=== PATIENT | female | born 1950 | race Caucasian/White ===

== ENCOUNTER 2016-08-15 21:19 | Inpatient (IN) | payer OTHER ==
[~2016-08-15] VITALS: Ht 162.6 cm; Wt 95.2 kg
--- NOTE | ~2016-08-15 | EKG ---
[place] [address] 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 : 1950 Requested By: Patsy Kenny Order Number: [id number] MD: Ralph Vasquez Measurements Intervals Bailey Rate: 95 P: 24 AL: 141 QRS: -11 QRSD: 107 T: 9 QT: 365 QTc: 459 Interpretive Statements Sinus rhythm Left ventricular hypertrophy Inferior infarct, old Poor R-wave progression No previous ECG available for comparison Electronically Signed On 08-16-2016 7:45:20 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
--- NOTE | ~2016-08-15 | HC ---
[facility] [place] [address] CONSULTATION Name: ADELINA DELGADO Room #: 442-P ADM IN M.R.#: [id number] Admission: 08/15/16 Attend Phys: Jase Cooper MD Discharge: Date of : 48 Report #: [id number] THIS REPORT FOR: //name// CC: Jase Mcgregor MD PRIMARY CARE PHYSICIAN: Madyson Gutierrez M.D. REFERRAL PHYSICIAN: Jase Cooper M.D. REASON FOR REFERRAL: Dyspnea. HISTORY OF PRESENT ILLNESS: The patient is a 66-year-old white female who presents to Emergency Room with severe dyspnea and bronchospasm. A pulmonary consultation was requested. The patient states that she has had episodic dyspnea and bronchospasm for the last several years. It is variable on onset. It is not associated with particular season. She has smoked for a few years as a teenager. She remembers tobacco products would cause . Otherwise, the patient has never been diagnosed with chronic lung disease. She denies any history of childhood asthma. She denies any dyspepsia. She denies any snoring. She denies any history of chronic sinusitis. Yesterday when she returned home from work, she started developing increasing dyspnea, which eventually progressed with nonproductive cough and bronchospasm. She states that this is usually how it happens in the past. Otherwise, she denies any fever, night sweats or chills, chest pain or productive cough, nausea, vomiting or diarrhea. PAST MEDICAL HISTORY: Hypothyroidism, otherwise unremarkable. PAST SURGICAL HISTORY: Negative. ALLERGIES: Are to Naprosyn, which causes hives. HOME MEDICATIONS: Are Synthroid, nebulized albuterol, Advair, Ultram, and Mobic. FAMILY HISTORY: Remarkable for cardiac disease in the mother. Father ; he had pancreatic cancer, myocardial infarction. SOCIAL HISTORY: She is , five children. 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 She smoked briefly as a teenager. She drinks occasionally. REVIEW OF SYSTEMS: As mentioned above. Otherwise, 10-point system review negative. PHYSICAL EXAMINATION: GENERAL: She is awake, alert, in mild distress. VITAL SIGNS: Temperature is 98 degrees Fahrenheit, pulse is 90, respiratory rate is 20, blood pressure 104/53 mmHg, saturation 94%. HEENT: Normocephalic, atraumatic. NECK: Supple without lymphadenopathy or thyromegaly. CHEST: Breath sounds are decreased with mild expiratory wheezes. CARDIOVASCULAR: Normal S1, S2. There is no murmurs or gallop. There is no JVD. There is no carotid bruit. Pulses are 2+/4+ bilaterally. ABDOMEN: Soft, nontender, no organomegaly or masses felt. EXTREMITIES: There is no edema, cyanosis or clubbing. LABORATORY DATA: Chest x-ray again shows small lung volumes, questionable mild bibasilar infiltrates. Lactic acid is 4, D-dimer was 0.29. Arterial blood gas revealed pH 7.51, pCO2 of 26, pO2 of 83 on room air. WBC is 6200, hemoglobin is 14.4, platelets are normal. IMPRESSION: 1. Acute respiratory distress in this 66-year-old white female. She has episodic severe dyspnea and bronchospasm. It is variable on onset. Tobacco products seems to exacerbate her symptoms. The patient likely has reactive airway disease such of asthma. 2. Respiratory alkalosis due to above. She does have mild increase in A-a gradient due to above. RECOMMENDATION: Agree with current treatment plans including corticosteroids and bronchodilators. IgE level and eosinophil count will be ordered. A pulmonary function should be performed as an outpatient. Would also continue her maintenance bronchodilator therapy along with inhaled corticosteroids that she was for now. She should be followed in our pulmonary clinic closely given her symptoms. Thank you for this consultation. <ELECTRONICALLY SIGNED> By: Arpit Mcgregor MD 08/18/16 1647 [id number] [id number] Arpit Mcgregor MD /nt
[2016-08-15 21:20] VITALS: BP 140/71
[2016-08-15] MEDS ORDERED: ALBUTEROL2.5 MG/3 M INH (21:33)
[2016-08-15] MEDS ORDERED: VENTOLIN HFA 1818 GM INH (21:33)
[2016-08-15] MEDS ORDERED: LEVOTHYROXIN0.088 MG PO (21:33)
[2016-08-15] MEDS ORDERED: ADVAIR 100-501 EACH INH (21:34)
[2016-08-15] MEDS ORDERED: TRAMADOL 50 MG50 MG PO (21:34)
[2016-08-15] MEDS ORDERED: MOBIC15 MG PO (21:34)
[2016-08-15 21:44] LABS: ABSOLUTE NEUTROPHILS 2.6 thou/uL (1.4-8.2); BASOPHILS 1.1 % (0.0-2.0); EOSINOPHILS 2.2 % (0.0-3.0); HEMATOCRIT 41.9 % (37.0-47.0); HEMOGLOBIN 14.4 gm/dL (12.0-15.0); LYMPHOCYTES 46.9 % (24.0-44.0); MCH 33.7 pg (26.0-34.0); MCHC 34.3 % (28.0-37.0); MONOCYTES 7.9 % (1.0-8.0); PLATELET COUNT 186 thou/uL (150-400); POLYS 41.9 % (36.0-66.0); RBC 4.28 mil/uL (4.20-5.00); RDW 12.8 % (10.5-14.5); WBC 6.2 thou/uL (4.0-11.0)
[2016-08-15 21:45] LABS: MANUAL DIFF NO
[2016-08-15 21:55] LABS: ANION GAP 12 mmol/L (7-16); BUN 20 mg/dL (7-18); CALCIUM 9.5 mg/dL (8.5-10.1); CHLORIDE 106 mmol/L (98-107); CO2 25 mmol/L (21-32); GLUCOSE 150 mg/dL (70-99); POTASSIUM 3.4 mmol/L (3.5-5.1); SODIUM 143 mmol/L (136-145)
[2016-08-15 22:04] LABS: ALBUMIN 4.1 g/dL (3.4-5.0); ALKALINE PHOSPHATASE 115 U/L (46-116); NT-PRO BRAIN NAT PEPTIDE 67 pg/mL (<300); SGOT 18 U/L (15-37); SGPT 37 U/L (30-65); TOTAL BILIRUBIN 0.4 mg/dL (<0.1-1.0); TOTAL PROTEIN 7.3 g/dL (6.4-8.2); TROPONIN-I < 0.04 ng/mL (<0.04-0.07)
[2016-08-15 22:26] LABS: ABG SAMPLE TYPE ARTERIAL; BE(vivo) -0.6 mmol/L (-2 to +3); HCO3 20.8 mmol/L (22.0-26.0); O2Hb 96.3 % (92.0-98.0); PCO2 26.1 mmHg (35.0-45.0); PO2 83.9 mmHg (80.0-100.0); STICK SITE R.RADIAL; pH 7.519 (7.360-7.450); sO2 97.3 % (92.0-98.0); tCO2 21.6 mmol/L (24.0-30.0)
[2016-08-15 22:27] LABS: ABG COMMENT ROOM AIR; LACTATE 4.89 mmol/L (0.5-2.0)
[2016-08-15 23:24] VITALS: BP 109/45
[2016-08-15 23:30] VITALS: BP 109/39
[2016-08-16 04:20] VITALS: BP 94/38
[2016-08-16 07:40] VITALS: BP 108/55
[2016-08-16 10:48] VITALS: BP 104/53
[2016-08-16 14:36] LABS: HEMATOCRIT 36.1 % (37.0-47.0); HEMOGLOBIN 12.5 gm/dL (12.0-15.0); MANUAL DIFF YES; MCH 34.2 pg (26.0-34.0); MCHC 34.7 % (28.0-37.0); MCV 98.7 fL (80.0-100.0); PLATELET COUNT 171 thou/uL (150-400); RBC 3.66 mil/uL (4.20-5.00); RDW 13.4 % (10.5-14.5); WBC 9.9 thou/uL (4.0-11.0)
[2016-08-16 15:08] LABS: ABSOLUTE NEUTROPHILS 9.1 thou/uL (1.4-8.2); PLATELET ESTIMATE NORMAL; TOTAL CELL COUNT 100
[2016-08-16 20:07] VITALS: BP 126/65
[2016-08-17 01:08] LABS: GLYCOHEMOGLOBIN (HGB A1C) 5.1 % (4.8-5.6)
[2016-08-17 05:15] VITALS: BP 117/60
[2016-08-17 07:33] VITALS: BP 134/79
[2016-08-17 11:50] VITALS: BP 136/73
[2016-08-17 16:52] VITALS: BP 127/65
[2016-08-17 20:50] VITALS: BP 128/57
[2016-08-18 04:20] VITALS: BP 141/74
[2016-08-18 05:41] LABS: MCH 33.9 pg (26.0-34.0); MCHC 33.3 % (28.0-37.0); MCV 101.6 fL (80.0-100.0); RBC 3.54 mil/uL (4.20-5.00); RDW 13.7 % (10.5-14.5); WBC 9.8 thou/uL (4.0-11.0)
[2016-08-18 05:56] LABS: CALCIUM 8.7 mg/dL (8.5-10.1); CREATININE 0.7 mg/dL (0.6-1.3); POTASSIUM 4.1 mmol/L (3.5-5.1)
[2016-08-18 07:10] VITALS: BP 139/72
[2016-08-18 12:07] VITALS: BP 128/72
[2016-08-18 15:27] VITALS: BP 132/71
[2016-08-18 22:08] LABS: INFLUENZA B Negative (Negative); METAPNEUMOVIRUS Negative (Negative)
[2016-08-19 04:00] VITALS: BP 116/67
[2016-08-19 08:45] VITALS: BP 137/81
[2016-08-19] MEDS ORDERED: DUONEB 2.5-0.5 M3 ML INH (09:48)
[2016-08-19] MEDS ORDERED: GUAIFENESIN/COD10 M1 PO (09:49)
[2016-08-19] MEDS ORDERED: CEFDINIR300 MG PO (09:50)
[2016-08-19] MEDS ORDERED: PREDNISONE 10 M10 MG PO (09:50)
[2016-08-19 10:37] VITALS: BP 137/81
[2016-08-19 11:28] VITALS: BP 137/81
== END 2016-08-19 11:29 | disposition home or self-care (01) | DRG 871 ==
LOC: ER 21:19 → 4S 22:37 → EROBS 22:37 → 4S 23:24
PROVIDERS: Emergency Medicine; Hospitalist; Internal Medicine Pulmonary Disease; Nurse Practitioner Acute Care
DX: A41.9 Sepsis, unspecified organism (principal); J96.20 Acute and chronic respiratory failure, unspecified whether with hypoxia or hypercapnia; J44.1 Chronic obstructive pulmonary disease with (acute) exacerbation; E87.3 Alkalosis; E87.2 Acidosis; J44.0 Chronic obstructive pulmonary disease with (acute) lower respiratory infection; E03.9 Hypothyroidism, unspecified; E66.9 Obesity, unspecified; E87.6 Hypokalemia; R73.9 Hyperglycemia, unspecified; J45.909 Unspecified asthma, uncomplicated; Z82.49 Family history of ischemic heart disease and other diseases of the circulatory system; Z68.36 Body mass index [BMI] 36.0-36.9, adult; Z88.8 Allergy status to other drugs, medicaments and biological substances; Z79.899 Other long term (current) drug therapy; Z80.0 Family history of malignant neoplasm of digestive organs
CPT/HCPCS: 10100